=== PATIENT | male | born 1985 | race African-American/Black ===

== ENCOUNTER 2017-09-02 06:56 | Emergency (ER) | payer MEDICAID ==
[~2017-09-02] VITALS: Ht 175.3 cm; Wt 70.0 kg
[2017-09-02 07:03] VITALS: BP 143/92
== END 2017-09-02 09:03 | disposition home or self-care (01) ==
LOC: ER 07:31 → EDSEX 07:31 → ER 09:03
DX: L84 Corns and callosities (principal); F12.10 Cannabis abuse, uncomplicated
CPT/HCPCS: 99281

== ENCOUNTER 2017-11-13 11:25 | Emergency (ER) | payer MEDICAID ==
[~2017-11-13] VITALS: Ht 175.3 cm; Wt 71.0 kg
[2017-11-13] MEDS ORDERED: KETOROLAC 60MG/2ML VIAL IM ONE (15:00)
[2017-11-13] MEDS ORDERED: ONDANSETRON 4MG ODT PO ONE (15:00)
[2017-11-13 15:54] VITALS: BP 116/93
[2017-11-13 16:06] LABS: CLARITY URINE CLEAR (CLEAR); COLOR URINE YELLOW (YELLOW); KETONES URINE TRACE (NEGATIVE); LEUKOCYTE ESTERASE URINE NEGATIVE (NEGATIVE); NITRITE URINE NEGATIVE (NEGATIVE); OCCULT BLOOD URINE NEGATIVE (NEGATIVE); PH URINE 6.5 (4.5-8.0); PROTEIN URINE NEGATIVE (NEGATIVE); SPECIFIC GRAVITY URINE 1.026 (1.005-1.030)
== END 2017-11-13 17:03 | disposition home or self-care (01) ==
LOC: ER 12:45
DX: S16.1XXA Strain of muscle, fascia and tendon at neck level, initial encounter (principal); R11.0 Nausea; R10.9 Unspecified abdominal pain; V43.62XA Car passenger injured in collision with other type car in traffic accident, initial encounter; Y93.89 Activity, other specified; Y92.488 Other paved roadways as the place of occurrence of the external cause
CPT/HCPCS: 71045; 81003; 96372; 99285; J1885; Q0162

== ENCOUNTER 2017-11-28 13:21 | Emergency (ER) | payer MEDICAID ==
[~2017-11-28] VITALS: Ht 175.3 cm; Wt 71.0 kg
[2017-11-28] MEDS ORDERED: IBUPROFEN 800MG TABLET PO ONE (15:45)
[2017-11-28 15:47] VITALS: BP 122/83
== END 2017-11-28 16:53 | disposition home or self-care (01) ==
LOC: ER 15:20
DX: B35.3 Tinea pedis (principal); F12.10 Cannabis abuse, uncomplicated
CPT/HCPCS: 73630; 99284